=== PATIENT | male | born 1970 | race Caucasian/White ===

== ENCOUNTER 2018-10-03 08:35 | Emergency (ER) | payer SELFPAY ==
[2018-10-03 08:43] VITALS: BP 189/118; PULSE 104; RESP 16; TEMP 36.7; O2SAT 97
--- NOTE | 2018-10-03 09:00 | DI.RAD_ITS ---
SYMPTOM/DIAGNOSIS; LT 3-5TH MCP TENDERNESS, SLAMMED IN DOOR , HX FRACTURES LEFT HAND: No fracture or dislocation is seen. IMPRESSION: Negative left hand
--- NOTE | 2018-10-03 09:01 | W.ED.GENAD ---
Discharge Plan Disposition Patient Disposition: HOME Condition: Good Discharge Details Chief Complaint: Orthopedic Clinical Impression: Contusion, Hand pain Primary Care Provider: Erika,Local ED Provider: Blanco Culp Home Meds and New Rx's Prescriptions: No Action No Known Home Meds RF: 0 Discharge Instructions Instructions: Contusion in Adults (ED) Additional Instructions: At this time there are no significant fractures noted on your x-ray. Please use ice, Tylenol, and Motrin as needed. You are free to return to work with no restrictions. If you notice any worsening of your symptoms, or any new symptoms such as vomiting, diarrhea, fever, chills, shortness of breath, chest pain, numbness, weakness, or fainting , please return immediately to the emergency department for reevaluation. Please follow up with your primary care provider as soon as possible for reassessment and reevaluation. As always, it was a pleasure participating in your medical care today. 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 Pain is slightly worse with movement. Exam demonstrates excellent two-point discrimination, normal movement for flexion and extension, and no internal or external rotation of the fingers with flexion and extension. Patient states that he was sent in by his boss to get checked out. He does not feel limited at the current time. There is mild bruising over the joints. We will get an x-ray to rule out acute fracture. 9:30 AM Review of the patient's x-rays demonstrate no evidence of acute gross or significant fracture on my review. Still pending formal radiology read. I did discuss the initial findings with the patient he states that he would like to go would not like to wait for the formal read. With no evidence of significant fracture I see no indication for significant ulnar gutter volar splint. Patient continues to have good mobility and dexterity of his hand. Pain is minimal. Patient will be discharged home. We discussed red flags which to return. I did discuss with the patient potential splinting options for support, and he is made it exquisitely clear that he does not want to wear anything as this would get in the way of him using a knife at work. I have extensively reviewed the treatment plan and discharge instructions with the patient. I have addressed all patient concerns at this time. The patient was made aware of what symptoms to monitor for that would warrant a return to the emergency department. Discussed the plan with the patient, they demonstrate verbal understanding and agreement with our assessment and plan at this time. HPI General Date/Time Provider Initiated Documentation: 10/03/18 08:55. 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 He states that yesterday he hit the hand in a car door as it was shut on his hand. He has worked since then. He denies any numbness tingling or weakness but does note mild to moderate pain with the use of his hand. 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 His boss recommended that he come in to be checked out. He denies any other complaints at this time. No other modifying factors. He states that he does not feel limited by the pain currently. Related Data Home Medications Medication Instructions Recorded Confirmed Unknown [No Known Home Meds] 10/03/18 10/03/18 Allergies Allergy/AdvReac Type Severity Reaction Status Date / Time No Known Allergies Allergy Unverified 10/03/18 08:48 General Stated Complaint: Orthopedic TOBIN: 4 Review of Systems Review of Systems All systems reviewed & are unremarkable except as noted in HPI and below PFSH Social History Smoking/Tobacco Use Status: Never Alcohol Intake: never Drug use: Never Substance use type: does not use Do you feel safe at home: Yes Do you feel safe in your relationship?: Yes Exam Narrative Exam Narrative: 1.Const: Well-nourished, Well-developed, appearing stated age 2.Eyes: PERRL, no conjunctival injection, and symmetrical lids. 3.ENT: Atraumatic external nose and ears. Moist MM. Neck: Symmetric, trachea midline, No thyromegaly. 4.CVS: +S1/S2, No murmurs or gallops. Peripheral pulses 2+ and equal in all extremities. Brisk capillary refill in all extremities. 5.RESP: Unlabored respiratory effort. Clear to auscultation bilaterally. No wheezes rales or rhonchi 6.GI: Soft, Nontender/Nondistended, No hepatosplenomegaly. No guarding or rebound. 7.MSK: Normocephalic/Atraumatic, Extremities w/o deformity .No cyanosis or clubbing, Normal movement of all extremities. Symmetrically palpable radial and ulnar pulses. Capillary refill less than 2 seconds to all digits. Intact sensation to light touch of the radial, median and ulnar nerves demonstrated by testing in the dorsal web space of the thumb, the distal palmar aspect of the index finger, and the lateral surface of the fifth finger. 2 point discrimination intact to 5mm (up to 6mm can be normal in digits 3-5) of discrimination in the affected digit. Intact motor function of the radial, median and ulnar nerves demonstrated by strength of extension of the isolated distal joint of the index finger, hand soft work wrapper layer and examiner, and spreading of the 2nd through 5th digits. Intact recurrent median nerve as demonstrated by ability to move thumb fully through opposition, abduction and flexion. No snuffbox tenderness. Flexion of all fingers reveals no internal or external rotation in the left hand. Mild tenderness over the metacarpal phalangeal joints with mild bruising over the third fourth and fifth joint. 8.Skin: Warm, Dry. No rashes or lesions. 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 Sensation grossly intact, no focal neurologic deficits. 10.Psych: (AAO) x3. Appropriate mood and affect Course Vital Signs Temperature 36.7 C 10/03/18 08:43 Pulse 104 H 10/03/18 08:43 Respiratory Rate 16 10/03/18 08:43 Blood Pressure 189/118 H 10/03/18 08:43 Pulse Oximetry 97 10/03/18 08:43 Temperature 36.7 C 10/03/18 08:43 Temperature Source Skin 10/03/18 08:43 Pulse 104 H 10/03/18 08:43 Respiratory Rate 16 10/03/18 08:43 Blood Pressure 189/118 H 10/03/18 08:43 Pulse Oximetry 97 10/03/18 08:43 Oxygen Delivery Method Room Air 10/03/18 08:43 Oxygen Flow Rate 0 10/03/18 08:43
--- NOTE | 2018-10-03 09:05 | ED.GENADUL_ITS ---
Discharge Plan Disposition Patient Disposition: HOME Condition: Good Discharge Details Chief Complaint: Orthopedic Clinical Impression: Contusion, Hand pain Primary Care Provider: Erika,Local ED Provider: Blanco Culp Home Meds and New Rx's Prescriptions: No Action No Known Home Meds RF: 0 Discharge Instructions Instructions: Contusion in Adults (ED) Additional Instructions: At this time there are no significant fractures noted on your x-ray. Please use ice, Tylenol, and Motrin as needed. You are free to return to work with no restrictions. If you notice any worsening of your symptoms, or any new symptoms such as vomiting, diarrhea, fever, chills, shortness of breath, chest pain, numbness, weakness, or fainting , please return immediately to the emergency department for reevaluation. Please follow up with your primary care provider as soon as possible for reassessment and reevaluation. As always, it was a pleasure partici pating in your medical care today. 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 Pain is slightly worse with movement. Exam demonstrates excellent two-point discrimination, normal movement for flexion and extension, and no internal or external rotation of the fingers with flexion and extension. Patient states that he was sent in by his boss to get checked out. He does not feel limited at the current time. There is mild bruising over the joints. We will get an x-ray to rule out acute fracture. 9:30 AM Review of the patient's x-rays demonstrate no evidence of acute gross or significant fracture on my review. Still pending formal radiology read. I did discuss the initial findings with the patient he states that he would like to go would not like to wait for the formal read. With no evidence of significant fracture I see no indication for significant ulnar gutter volar splint. Patient continues to have good mobility and dexterity of his hand. Pain is minimal. Patient will be discharged home. We discussed red flags which to return. I did discuss with the patient potential splinting options for support, and he is made it exquisitely clear that he does not want to wear anything as this would get in the way of him using a knife at work. I have extensively reviewed the treatment plan and discharge instructions with the patient. I have addressed all patient concerns at this time. The patient was made aware of what symptoms to monitor for that would warrant a return to the emergency department. Discussed the plan with the patient, they demonstrate verbal understanding and agreement with our assessment and plan at this time. HPI General Date/Time Provider Initiated Documentation: 10/03/18 08:55 . 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 He states that yesterday he hit the hand in a car door as it was shut on his hand. He has worked since then. He denies any numbness tingling or weakness but does note mild to moderate pain with the use of his hand. 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 His boss recommended that he come in to be checked out. He denies any other complaints at this time. No other modifying factors. He states that he does not feel limited by the pain currently. Related Data Home Medications Medication Instructions Recorded Confirmed Unknown [No Known Home Meds] 10/03/18 10/03/18 Allergies Allergy/AdvReac Type Severity Reaction Status Date / Time No Known Allergies Allergy Unverified 10/03/18 08:48 General Stated Complaint: Orthopedic TOBIN: 4 Review of Systems Review of Systems All systems reviewed & are unremarkable except as noted in HPI and below PFSH Social History Smoking/Tobacco Use Status: Never Alcohol Intake: never Drug use: Never Substance use type: does not use Do you feel safe at home: Yes Do you feel safe in your relationship?: Yes Exam Narrative Exam Narrative: 1.Const: Well-nourished, Well-developed, appearing stated age 2.Eyes: PERRL, no conjunctival injection, and symmetrical lids. 3.ENT: Atraumatic external nose and ears. Moist MM. Neck: Symmetric, trachea midline, No thyromegaly. 4.CVS: +S1/S2, No murmurs or gallops. Peripheral pulses 2+ and equal in all extremities. Brisk capillary refill in all extremities. 5.RESP: Unlabored respiratory effort. Clear to auscultation bilaterally. No wheezes rales or rhonchi 6.GI: Soft, Nontender/Nondistended, No hepatosplenomegaly. No guarding or rebound. 7.MSK: Normocephalic/Atraumatic, Extremities w/o deformity .No cyanosis or clubbing, Normal movement of all extremities. Symmetrically palpable radial and ulnar pulses. Capillary refill less than 2 seconds to all digits. Intact sensation to light touch of the radial, median and ulnar nerves demonstrated by testing in the dorsal web space of the thumb, the distal palmar aspect of the index finger, and the lateral surface of the fifth finger. 2 point discrimination intact to 5mm (up to 6mm can be normal in digits 3-5) of discrimination in the affected digit. Intact motor function of the radial, median and ulnar nerves demonstrated by strength of extension of the isolated distal joint of the index finger, hand metal fabricating supervisor, and spreading of the 2nd through 5th digits. Intact recurrent median nerve as demonstrated by ability to move thumb fully through opposition, abduction and flexion. No snuffbox tenderness. Flexion of all fingers reveals no internal or external rotation in the left hand. Mild tenderness over the metacarpal phalangeal joints with mild bruising over the third fourth and fifth joint. 8.Skin: Warm, Dry. No rashes or lesions. 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 Sensation grossly intact, no focal neurologic deficits. 10.Psych: (AAO) x3. Appropriate mood and affect Course Vital Signs Temperature 36.7 C 10/03/18 08:43 Pulse 104 H 10/03/18 08:43 Respiratory Rate 16 10/03/18 08:43 Blood Pressure 189/118 H 10/03/18 08:43 Pulse Oximetry 97 10/03/18 08:43 Temperature 36.7 C 10/03/18 08:43 Temperature Source Skin 10/03/18 08:43 Pulse 104 H 10/03/18 08:43 Respiratory Rate 16 10/03/18 08:43 Blood Pressure 189/118 H 10/03/18 08:43 Pulse Oximetry 97 10/03/18 08:43 Oxygen Delivery Method Room Air 10/03/18 08:43 Oxygen Flow Rate 0 10/03/18 08:43
[2018-10-03 09:34] VITALS: BP 188/99; PULSE 104; RESP 16; TEMP 36.7; O2SAT 97
== END 2018-10-03 09:34 | disposition home or self-care (01) ==
PROVIDERS: Emergency Provider Student in an Organized Health Care Education/Training Program
DX: S60.222A Contusion of left hand, initial encounter (principal); W23.0XXA Caught, crushed, jammed, or pinched between moving objects, initial encounter
CPT/HCPCS: 99283; 73130